=== PATIENT | female | born 2000 | race Caucasian/White ===

== ENCOUNTER 2025-01-30 11:54 | Outpatient (RCR) | payer OTHER, SELFPAY ==
--- NOTE | 2025-02-12 15:40 | HO.PHP ---
On 01/30/2025,this contract technical writer met with the patient for the purpose of completing an intake assessment for [facility] treatment. The patient disclosed to this contract technical writer that she was actively injecting cocaine,we discussed this at length. This contract technical writer recommended substance addiction treatment first,once completed,the patient may return to [facility]. This contract technical writer consulted with the [facility] catering operations manager,she met with the patient and this contract technical writer to discuss this situation. The patient acknowledged that she could benefit from substance addiction treatment. This contract technical writer provided the patient with resources for substance addiction treatment. This contract technical writer called the patient therapist who referred her to [facility] to inform him of the situation. Kelly Fajardo,[facility] Behavioral Health Clinician III
== END 2025-01-30 12:20 | disposition home or self-care (01) ==
LOC: HO.PHPA 11:54
PROVIDERS: Visit Provider Psychiatry & Neurology Psychiatry
DX: F31.9 Bipolar disorder, unspecified (principal); F43.10 Post-traumatic stress disorder, unspecified; F19.90 Other psychoactive substance use, unspecified, uncomplicated

== ENCOUNTER 2025-02-01 19:20 | Emergency (ER) | payer OTHER, SELFPAY ==
[2025-02-01 19:35] VITALS: BP 139/86; PULSE 89; RESP 18; TEMP 36.8; O2SAT 99; BMI 19.2
--- NOTE | 2025-02-01 19:35 | ED.GENADULT ---
HPI - General Adult General Chief complaint: Skin/Abscess/Foreign Body Stated complaint: Abscess on both arms Time Seen by Provider: 02/01/25 21:28 Source: patient Mode of arrival: ambulatory Limitations: no limitations History of Present Illness ED Provider: HPI narrative: 24-year-old woman, with IV cocaine injection use, denies opiate use, OS concerned whether she is developing abscesses, no fevers or chills, states 1 site where she injects was draining. Related Data Previous Rx's ?Medication ?Instructions ?Recorded cephalexin 500 mg capsule 500 mg PO QID 7 days #28 caps 02/01/25 Allergies Allergy/AdvReac Type Severity Reaction Status Date / Time Penicillins Allergy Rash Verified 02/01/25 19:37 Review of Systems Constitutional: Constitutional: Reports as per [facility] Social History Social History Substance Use Type: Crack/Cocaine and Marijuana Advance Directives: No Advance Directives Information Provided: No Physical Exam ED Vital Signs: Vital Signs - 24 hr 02/01/25 19:35 Temperature 98.2 F Pulse Rate 89 Respiratory Rate 18 Blood Pressure 139/86 Pulse Oximetry 99 Oxygen Delivery Method Room Air BMI result Body Mass Index 19.2 Const Other: Patient looks appropriate for age Examination of her bilateral upper extremities does not reveal any ongoing no any evidence for abscesses, she definitely has scarred up tissue and 1 area of likely semi recent injection was slightly more puffy, distal pulses intact, full range of motion of the elbows and wrists Alert and oriented x4 No SI or HI Course Course Course Narrative: RME, this is a rapid medical exam performed by Rajat Reza please refer to primary provider for complete H&P- 24 year old female presents for evaluation of abscess to both arms. She admits to IV drug use and reports painful, red areas worsening over the last couple of weeks. Denies any fevers of chills. She reports that she had an abscess to the left arm that has drained on it's own and one to the right arm that has not drained. Plan for labs, blood cultures Medical Decision Making Medical Decision Making [facility] Narrative: No evidence for compartment syndrome, likely local reaction not an abscess but we will cover antibiotics as she has high-risk, blood work without any adjuvant leukocytosis, no fevers no chills, no evidence for compartment syndrome, no evidence for DVT, I spent quite a bit of time discussing rehab with her, patient states she has tried it in the past and went on using with her boyfriend Differential Diagnosis Differential Diagnoses: The differential diagnosis associated with the presentation includes (See above) Lab Data 02/01/25 19:54 02/01/25 19:54 Labs: Lab Results 02/01/25 Range/Units 19:54 WBC 9.7 (4.8-10.8) X10*3/uL RBC 4.27 (4.20-5.50) X10*6/uL Hgb 12.7 (12.0-16.0) g/dl Hct 39.2 (37.0-47.0) % MCV 91.8 (80.0-98.0) fL MCH 29.7 (27.0-33.0) pg MCHC 32.4 (31.0-35.0) g/dl RDW 14.3 (11.0-16.0) % Plt Count 255 (160-400) X10*3/uL MPV 12.0 (9.4-12.3) fL Immature Gran % (Auto) 0.2 (0.0-0.4) % Neut % (Auto) 66.0 (45-73) % Lymph % (Auto) 21.5 (20-40) % Carroll % (Auto) 8.3 (2-11) % Eos % (Auto) 3.2 (0-4) % Baso % (Auto) 0.8 (0-2) % Lymph # (Auto) 2.1 (1.2-4.9) X10*3/uL Carroll # (Auto) 0.8 (0.1-1.2) X10*3/uL Eos # (Auto) 0.3 (0.0-0.4) X10*3/uL Baso # (Auto) 0.1 (0.0-0.2) X10*3/uL Abs Immat Gran (auto) 0.02 (0.00-0.03) X10*3/uL Absolute Neuts (auto) 6.4 (2.0-8.3) x10*3/uL Absolute Nucleated RBC 0.000 (0.0-0.012) X10*3/uL Nucleated RBC % (auto) 0.0 (0.0-0.2) /100WBC Sodium 139 (135-145) mmol/L Potassium 3.7 (3.3-5.1) mmol/L Chloride 111 H (96-108) mmol/L Carbon Dioxide 19 L (22-29) mmol/L Anion Gap 13 (12-20) BUN 15 (9-16) mg/dL Creatinine 0.92 (0.5-1.4) mg/dL Estim Creat Clear Calc 79.1 Estimated GFR > 60 Random Glucose 92 (60-115) mg/dL Lactic Acid 0.9 (0.5-2.0) mmol/L Calcium 9.1 (8.4-10.2) mg/dL Total Bilirubin 0.4 (0.0-1.0) mg/dL AST 21 (5-31) U/L ALT 13 (0-31) U/L Alkaline Phosphatase 49 (39-117) U/L Total Protein 7.6 (6.5-8.0) g/dL Albumin 4.4 (3.5-5.0) g/dL Lipase 14 (8-78) U/L Beta HCG, Quant < 2 mIU/mL Discharge Plan Discharge Clinical Impression: Cocaine use disorder, severe, dependence, Abscess of skin or subcutaneous tissue Patient Disposition: Home, Self-Care Additional Instructions: Based on my exam your blood work, you have no fevers I have low suspicion that you have abscesses these are local reaction and scar tissue from injecting cocaine I will however start you on antibiotics because your high-risk individual, we have discussed what recovery steps you may choose to take. Spiking fevers, redness spreading up ER arms come back to the ER Prescriptions: New cephalexin 500 mg capsule 500 mg PO QID 7 Days Qty: 28 0RF Print Language: Macedonian
[2025-02-01 20:01] LABS: MANUAL DIFF FLAG NO
[2025-02-01 20:07] LABS: Hematocrit 39.2 % (37.0-47.0); Hemoglobin 12.7 g/dl (12.0-16.0); Imm Gran Abs Auto 0.02 X10*3/uL (0.00-0.03); Imm Gran Pct Auto 0.2 % (0.0-0.4); Lymphocytes Absolute Auto 2.1 X10*3/uL (1.2-4.9); Mean Corpuscular HGB Conc 32.4 g/dl (31.0-35.0); Mean Corpuscular Hemoglobin 29.7 pg (27.0-33.0); Mean Corpuscular Volume 91.8 fL (80.0-98.0); NRBC Abs Auto 0.000 X10*3/uL (0.0-0.012); NRBC Pct Auto 0.0 /100WBC (0.0-0.2); Platelet Count 255 X10*3/uL (160-400); Red Blood Count 4.27 X10*6/uL (4.20-5.50); White Blood Count 9.7 X10*3/uL (4.8-10.8)
[2025-02-01 20:22] LABS: Alanine Aminotransferase 13 U/L (0-31); Albumin Level 4.4 g/dL (3.5-5.0); Alkaline Phosphatase 49 U/L (39-117); Anion Gap 13 (12-20); Aspartate Amino Transferase 21 U/L (5-31); Blood Urea Nitrogen 15 mg/dL (9-16); Calcium 9.1 mg/dL (8.4-10.2); Carbon Dioxide 19 mmol/L (22-29); Chloride 111 mmol/L (96-108); Creatinine Clr Calc Pharmacy 79.1; Estimated Glomerular Filt Rate > 60; Lipase 14 U/L (8-78); Potassium 3.7 mmol/L (3.3-5.1); Sodium 139 mmol/L (135-145); Total Protein 7.6 g/dL (6.5-8.0)
[2025-02-01 22:51] VITALS: BP 139/86; PULSE 89; RESP 18; TEMP 36.8; O2SAT 99
== END 2025-02-01 22:52 | disposition home or self-care (01) ==
PROVIDERS: Physician Assistant; Emergency Provider Emergency Medicine
DX: L02.413 Cutaneous abscess of right upper limb (principal); L02.414 Cutaneous abscess of left upper limb; Z79.899 Other long term (current) drug therapy; F19.90 Other psychoactive substance use, unspecified, uncomplicated
CPT/HCPCS: 36415; 80053; 83605; 83690; 84702; 85025; 87040; 99283; 99284